=== PATIENT | male | born 1955 | race Caucasian/White ===

== ENCOUNTER 2016-11-01 10:22 | Day surgery (SDC) | payer BC ==
--- NOTE | ~2016-11-01 | EGD ---
EGD REPORT [facility] [address] [place] [address] NAME: RAMIN FIERRO : [birth year] STATUS : REG [facility]#: [id number] AGE: 61 ADM/REG DATE : 11/01/16 MR#: [id number] REPORT SERV DATE: 11/01/16 DICTATED BY: FAVIAN MEJIA DATE: 11/01/16 REPORT STATUS : Draft TRANSCRIBED BY: [facility] DATE: 11/01/16 Endoscopy Center Patient Name: Ramin Firero Date of : 1955 Attending MD: FAVIAN MEJIA, Procedure Date No Time: 11/01/2016 Procedure: Upper EUS Indications: Suspected mass in pancreas on CT scan, midly elevated CA 19-9Suspected chronic pancreatitis Referring MD: [place] Montilla MD Medicines: Monitored Anesthesia Care Complications: No immediate complications. Estimated blood loss: None. Procedure: Pre-Anesthesia Assessment: - ASA Grade Assessment: III - A patient with severe systemic disease. After obtaining informed consent, the endoscope was passed under direct vision. Throughout the procedure, the patient's blood pressure, pulse, and oxygen saturations were monitored continuously. The Endoscope was introduced through the mouth, and advanced to the second part of duodenum. Findings: Endosonographic Finding : Endosonographic imaging of the pancreas showed sonographic changes indicative of mild-moderate chronic pancreatitis in the entire pancreas. The parenchyma had hyperechoic foci, hypoechoic foci and lobularity. The pancreatic duct had a normal endosonographic appearance. The pancreatic duct measured up to 2 mm in diameter. Endosonographic imaging of the pancreas showed no cyst/pseudocyst and no mass. There was no sign of significant endosonographic abnormality in the common bile duct. There was no sign of significant endosonographic abnormality in the examined duodenum. Endosonographic images of the stomach were unremarkable. There was no sign of significant endosonographic abnormality in the esophagus. Impression: - Endosonographic imaging of the pancreas showed sonographic changes suggestive of mild-moderate chronic pancreatitis. - There was no sign of significant pathology in the common bile duct. - There was no sign of significant pathology in the EGD REPORT [address] [address] NAME: RAMIN FIERRO : [birth year] STATUS : REG [facility] [place] PAT#: [id number] AGE: 61 ADM/REG DATE : 11/01/16 MR#: [id number] REPORT SERV DATE: 11/01/16 DICTATED BY: FAVIAN MEJIA DATE: 11/01/16 REPORT STATUS : Draft TRANSCRIBED BY: [employer] DATE: 11/01/16 examined duodenum. - Endosonographic images of the stomach were unremarkable. - There was no sign of significant pathology in the esophagus. Recommendation: - Return to previous diet. - Continue present medications. - Return to referring physician. Procedure Code(s): --- Professional --- 91105, Esophagogastroduodenoscopy, flexible, transoral; with endoscopic ultrasound examination, including the esophagus, stomach, and either the duodenum or a surgically altered stomach where the jejunum is examined distal to the anastomosis Diagnosis Code(s): --- Professional --- R93.3, Abnormal findings on diagnostic imaging of other parts of digestive tract CPT copyright 2013 [employer]. All rights reserved. The codes documented in this report are preliminary and upon audio visual collections coordinator review may be revised to meet current compliance requirements. FAVIAN MEJIA, 11/01/2016 12:05 PM Number of Addenda: 0 Note Initiated On: 11/01/2016 11:02 AM Scope Withdrawal Time 0 hours 0 minutes 0 seconds [id number] [id number]
[~2016-11-01 10:22] MED LIST: ALIGN4 MG PO; CREON 24,000 UNITS PO; LANTUSCART SC; PREV30 PO; SARAFEM20 M1 PO; ZOFRAN4 PO
[2016-11-04] MEDS ORDERED: ZOFRAN4 PO (23:45)
[2016-11-04] MEDS ORDERED: CREON 24,000 UNITS PO (23:47)
[2016-11-04] MEDS ORDERED: ALIGN4 MG PO (23:48)
[2016-11-04] MEDS ORDERED: LANTUS SC (23:48)
[2016-11-04] MEDS ORDERED: PROZAC PO (23:48)
[2016-11-04] MEDS ORDERED: PREV30 PO (23:48)
[2016-11-06] MEDS ORDERED: ASAB PO (11:34)
[2016-11-06] MEDS ORDERED: NOVOLOG SC (11:37)
== END 2016-11-01 23:59 | disposition home health service (06) ==
LOC: DMU 10:22
PROVIDERS: Internal Medicine Gastroenterology
PROC: 0DJ08ZZ Inspection of Upper Intestinal Tract, Via Natural or Artificial Opening Endoscopic (ICD-10-PCS; principal; 2016-11-01 11:30)
DX: K86.1 Other chronic pancreatitis (principal); E11.9 Type 2 diabetes mellitus without complications; F32.9 Major depressive disorder, single episode, unspecified; F17.200 Nicotine dependence, unspecified, uncomplicated; Z98.890 Other specified postprocedural states
CPT/HCPCS: 82962; C1725